=== PATIENT | female | born 1995 | race Caucasian/White ===

== ENCOUNTER 2020-02-10 21:47 | Emergency (ER) | payer BC ==
[~2020-02-10] VITALS: Ht 167.6 cm; Wt 125.0 kg
[2020-02-10 21:53] VITALS: BP 124/89; TEMP 98
[2020-02-10] MEDS ORDERED: PROZAC60 MG (22:28)
[2020-02-10] MEDS ORDERED: DESYREL 50MG50 MG PO (22:29)
[2020-02-10] MEDS ORDERED: KLONOPIN 1MG1 MG PO (22:29)
[2020-02-10] MEDS ORDERED: ZOFRAN 4MG T4 MG/TAB PO (23:36)
[2020-02-10 23:49] VITALS: PULSE 74
== END 2020-02-10 23:51 | disposition home or self-care (01) ==
LOC: COL.ER 21:47
DX: S06.0X0A Concussion without loss of consciousness, initial encounter (principal); S00.83XA Contusion of other part of head, initial encounter; F41.9 Anxiety disorder, unspecified; G43.909 Migraine, unspecified, not intractable, without status migrainosus; F32.9 Major depressive disorder, single episode, unspecified; Z88.1 Allergy status to other antibiotic agents; W22.8XXA Striking against or struck by other objects, initial encounter

== ENCOUNTER → 2021-01-25 | Outpatient (REF) ==
[~2021-01-25] MED LIST: ACCUTANE40 M1 PO; CEPHALEXIN500 M1 PO; DESYREL 50MG50 MG PO; KLONOPIN 1MG1 MG PO; PROZAC60 MG; ZOFRAN 4MG T4 MG/TAB PO
== END ==
LOC: COL.EMP 02:49
DX: Z20.822 Contact with and (suspected) exposure to COVID-19 (principal)

== ENCOUNTER 2021-05-22 14:54 | Outpatient (CLI) | payer BC ==
[~2021-05-22] VITALS: Ht 167.6 cm; Wt 133.1 kg
[2021-05-22] VITALS (8 sets, daily range): BP systolic 122–168; BP diastolic 81–96; PULSE 92–100; TEMP 98.3
[~2021-05-22 14:54] MED LIST changes: -ACCUTANE40 M1 PO
[2021-05-22] MEDS ORDERED: ACCUTANE40 M1 PO (16:00)
--- NOTE | 2021-05-22 17:45 | NUR ---
Pt tolerated initial Vyepti infusion with no problem. amb to exit wtih steady gait. next appointment scheduled 90 days from today.
== END 2021-05-22 17:47 | disposition home or self-care (01) ==
LOC: EUO 14:54
DX: G43.109 Migraine with aura, not intractable, without status migrainosus (principal)
CPT/HCPCS: J3032

== ENCOUNTER 2021-08-20 14:58 | Outpatient (CLI) | payer BC ==
[~2021-08-20] VITALS: Ht 167.6 cm; Wt 139.0 kg
[2021-08-20] VITALS (7 sets, daily range): BP systolic 113–146; BP diastolic 64–87; PULSE 101–107; TEMP 98.2
[~2021-08-20 14:58] MED LIST changes: +ACCUTANE40 M1 PO
== END 2021-08-20 18:12 | disposition home or self-care (01) ==
LOC: EUO 14:58
DX: G43.109 Migraine with aura, not intractable, without status migrainosus (principal)
CPT/HCPCS: J3032

== ENCOUNTER → 2021-12-01 | Outpatient (CLI) | payer BC | LOC: COL.RAD 09:59 | DX: K76.0 Fatty (change of) liver, not elsewhere classified (principal) ==